=== PATIENT | female | born 1990 | race Two or more races ===

== ENCOUNTER 2018-03-10 13:11 | Emergency (ER) | payer MEDICAID ==
[2018-03-10] MEDS ORDERED: ONDANSETRON 4 MG TAB.RAPDIS PO ONE (15:05)
--- NOTE | 2018-03-10 15:06 | ER Document Report ---
ED Medical Screen (RME) - General Chief Complaint: Abdominal Pain Stated Complaint: ABDOMINAL PAIN Time Seen by Provider: 03/10/18 15:04 Notes: 27 years old female who is presents today with lower abdominal pain fever rash chills and nausea vomited a few times. TRAVEL OUTSIDE OF THE [place] IN LAST 30 DAYS: No - Related Data Allergies/Adverse Reactions: No Known Allergies Allergy (Unverified 03/10/18 13:17) Physical Exam - Vital signs Vitals: Temp Pulse Resp BP Pulse Ox 98.7 F 78 18 127/78 H 100 03/10/18 13:22 03/10/18 13:22 03/10/18 13:22 03/10/18 13:22 03/10/18 13:22 Course - Vital Signs Vital signs: Temp Pulse Resp BP Pulse Ox 98.7 F 78 18 127/78 H 100 03/10/18 13:22 03/10/18 13:22 03/10/18 13:22 03/10/18 13:22 03/10/18 13:22
[2018-03-10 15:38] LABS: ABSOLUTE BASOPHILS # (AUTO) 0.1 10^3/uL (0.0-0.2); ABSOLUTE EOSINOPHILS # (AUTO) 0.2 10^3/uL (0.0-0.6); ABSOLUTE LYMPHOCYTES (AUTO) 3.3 10^3/uL (0.5-4.7); ABSOLUTE MONOCYTES (AUTO) 0.5 10^3/uL (0.1-1.4); ABSOLUTE NEUT (AUTO) 8.2 10^3/uL (1.7-8.2); BASOPHILS % (AUTO) 0.6 % (0-2); EOSINOPHILS % (AUTO) 1.7 % (0-6); HEMATOCRIT 37.2 % (36.0-47.0); HEMOGLOBIN 12.5 g/dL (12.0-15.5); LYMPHOCYTES % (AUTO) 26.6 % (13-45); MEAN CORPUSCULAR HEMOGLOBIN 28.4 pg (27.0-33.4); MEAN CORPUSCULAR HGB CONC 33.5 g/dL (32.0-36.0); MEAN CORPUSCULAR VOLUME 85 fl (80-97); MONOCYTES % (AUTO) 4.4 % (3-13); PLATELET COUNT 292 10^3/uL (150-450); RED BLOOD COUNT 4.38 10^6/uL (3.72-5.28); RED CELL DISTRIBUTION WIDTH 13.5 % (11.5-14.0); SEGMENTED NEUTROPHILS % (AUTO) 66.7 % (42-78); TOTAL CELLS COUNTED % (AUTO) 100 %; WHITE BLOOD COUNT 12.3 10^3/uL (4.0-10.5)
[2018-03-10 15:41] LABS: APPEARANCE,URINE CLEAR; BILIRUBIN,URINE NEGATIVE (NEGATIVE); COLOR,URINE STRAW; GLUCOSE, URINE NEGATIVE (NEGATIVE); KETONES,URINE NEGATIVE (NEGATIVE); LEUKOCYTE ESTERASE,URINE NEGATIVE (NEGATIVE); NITRITE,URINE NEGATIVE (NEGATIVE); PROTEIN,URINE NEGATIVE (NEGATIVE); UROBILINOGEN,URINE NEGATIVE mg/dL (<2.0)
[2018-03-10 15:58] LABS: ALANINE AMINOTRANSFERASE 17 U/L (9-52); ALBUMIN 4.2 g/dL (3.5-5.0); ALKALINE PHOSPHATASE 56 U/L (38-126); ANION GAP 13 (5-19); ASPARTATE AMINO TRANSFERASE 17 U/L (14-36); BILIRUBIN,DIRECT 0.1 mg/dL (0.0-0.4); BILIRUBIN,TOTAL 0.1 mg/dL (0.2-1.3); BLOOD UREA NITROGEN 6 mg/dL (7-20); CALCIUM 9.5 mg/dL (8.4-10.2); CARBON DIOXIDE 24 mmol/L (22-30); CHLORIDE 104 mmol/L (98-107); GLUCOSE 91 mg/dL (75-110); SODIUM 141.4 mmol/L (137-145); TOTAL PROTEIN 6.9 g/dL (6.3-8.2)
[2018-03-10] MEDS ORDERED: ACETAMINOPHEN 325 MG TABLET PO ONE (16:43)
--- NOTE | 2018-03-10 17:50 | RADIOLOGY REPORT (SQ) ---
EXAM DESCRIPTION: U/S OB TRANSVAG W/DOPPLER COMPLETED DATE/TIME: 03/10/2018 5:39 pm REASON FOR STUDY: pego pain COMPARISON: None. TECHNIQUE: Endovaginal static and realtime grayscale images acquired of the pelvis. Additional selec jennifer spectral and color Doppler images recorded. All images stored on PACs. [facility],886 CLINICAL DATES: 01/19/2018 LIMITATIONS: Adnexa not seen due to pelvic bowel gas FINDINGS: FETUS: Single Living intrauterine . ULTRASOUND EGA: 6 weeks 4 days ULTRASOUND GIANFRANCO: 10/30/2018 EFW: Not applicable less than 20 weeks. CRL: 0.7 cm FHR: 141 beats per minute. SURVEY: Too early to assess. AMNIOTIC FLUID: Adequate amount. PLACENTA: Not yet developed due to early gestation. SUBCHORIONIC BLEED: No. SIZE OF BLEED: Not applicable. UTERUS: No masses. No anomalies. Uterus is 9.6 x 5 x 5 cm size CERVICAL LENGTH: 2.7 cm Closed. RIGHT ADNEXA: Not visualized due to adnexal bowel gas LEFT ADNEXA: Not visualized due to adnexal bowel gas FREE FLUID: None. OTHER: No other significant finding. IMPRESSION: LIVING INTRAUTERINE . EGA 6 weeks 4 days Trimester of : First - 0 to 13 weeks. TECHNICAL DOCUMENTATION: JOB ID: [id number] [employer]- All Rights Reserved rev-08/13 Reading location - IP/workstation name: [email or web address]
--- NOTE | 2018-03-10 18:21 | ER Document Report ---
ED General - General Chief Complaint: Abdominal Pain Stated Complaint: ABDOMINAL PAIN Time Seen by Provider: 03/10/18 15:04 Notes: Patient is a 27-year-old female presents to the emergency department for lower back pain and left pelvic pain. Patient states she was also nauseated and has a generalized headache. Patient states her last menstrual period was January 19 and she took a home test that was positive. Patient denies any vaginal discharge, to include malodor or bleeding. Patient denies any vaginal itching. Patient denies dysuria. Past medical history: Sickle cell trait Medications: none allergies: none surgery: TRAVEL OUTSIDE OF THE [place] IN LAST 30 DAYS: No - Related Data Allergies/Adverse Reactions: No Known Allergies Allergy (Unverified 03/10/18 13:17) Past Medical History - General Information source: Patient - Social History Smoking Status: Unknown if Ever Smoked Family History: Reviewed & Not Pertinent Patient has suicidal ideation: No Patient has homicidal ideation: No Renal/ Medical History: Denies: Hx Peritoneal Dialysis Review of Systems - Review of Systems Constitutional: denies: Chills, Fever EENT: No symptoms reported Cardiovascular: No symptoms reported Respiratory: No symptoms reported Gastrointestinal: See HPI Genitourinary: See HPI Female Genitourinary: See HPI Musculoskeletal: See HPI Skin: No symptoms reported Hematologic/Lymphatic: No symptoms reported Neurological/Psychological: No symptoms reported Physical Exam - Vital signs Vitals: Temp Pulse Resp BP Pulse Ox 98.7 F 78 18 127/78 H 100 03/10/18 13:22 03/10/18 13:22 03/10/18 13:22 03/10/18 13:22 03/10/18 13:22 - Notes Notes: GENERAL: Alert, interacts well. No acute distress. HEAD: Normocephalic, atraumatic. EYES: Pupils equal, round, and reactive to light. Extraocular movements intact. ENT: Oral mucosa moist, tongue midline. NECK: Full range of motion. Supple. Trachea midline. LUNGS: Clear to auscultation bilaterally, no wheezes, rales, or rhonchi. No respiratory distress. HEART: Regular rate and rhythm. No murmur ABDOMEN: Soft, non-tender. Non-distended. Bowel sounds present in all 4 quadrants. No McBurney's point tenderness, no Richardson sign. Patient has minor pain left pelvic region. EXTREMITIES: Moves all 4 extremities spontaneously. No edema, normal radial and dorsalis pedis pulses bilaterally. No cyanosis. BACK: no cervical, thoracic, lumbar midline tenderness. No saddle anesthesia, normal distal neurovascular exam. No CVA tenderness bilaterally generalized lower lumbar pain paraspinal. NEUROLOGICAL: Alert and oriented x3. Normal speech. cranial nerves II through XII grossly intact PSYCH: Normal affect, normal mood. SKIN: Warm, dry, normal turgor. No rashes or lesions noted. Course - Re-evaluation Re-evalutation: 03/10/18 18:41 Patient's labs revealed leukocytosis of 12.3. No signs of anemia, no signs of urinary tract infection. Patient also has no signs of electrolyte abnormalities. Patient does have a positive hCG with ultrasound result that shows a 6-week 4-day living intrauterine . Heart rate 141, closed os. Reevaluated the patient after Zofran and Tylenol. Patient states she is no longer nauseated and she no longer has any abdominal pain or headache. Discussed with her ultrasound and lab results. Discussed need to follow-up with NUCLEAR CARDIOLOGY TECHNOLOGIST. Close return precautions discussed. Vitals reviewed, patient non-tachycardic, not hypotensive. Stable for discharge. - Vital Signs Vital signs: Temp Pulse Resp BP Pulse Ox 98.7 F 78 18 127/78 H 100 03/10/18 13:22 03/10/18 13:22 03/10/18 13:22 03/10/18 13:22 03/10/18 13:22 - Laboratory Result Diagrams: 03/10/18 15:19 03/10/18 15:19 Laboratory results interpreted by me: 03/10/18 03/10/18 03/10/18 15:19 15:19 15:19 WBC 12.3 H BUN 6 L Total Bilirubin 0.1 L Beta HCG, Quant 63103.00 H Urine HCG, Qual POSITIVE H Discharge - Discharge Clinical Impression: Nausea, Pelvic pain Qualifiers: Weeks of gestation: less than 8 weeks Qualified Code(s): Z3A.01 - Less than 8 weeks gestation of Condition: Stable Disposition: HOME, SELF-CARE Instructions: Nausea or Vomiting, Nonspecific ([facility]), Pelvic Pain in ( [facility]) Additional Instructions: As we discussed you have been seen and treated in the emergency department for lower abdominal pain, back pain, nausea, headache. Your lab results reveal that you are 6 weeks and 4 days . Your ultrasound shows a single living intrauterine . This means that the baby is inside of your uterus where it should be. Should you continue with any pains you can take Tylenol [id number]. Please return to the emergency room should you have any other concerning sign and symptoms. I have given you a phone number for NUCLEAR CARDIOLOGY TECHNOLOGIST follow-up. Please follow-up with them as soon as possible. Referrals: TITA AYERS MD [ACTIVE STAFF] - Follow up as needed
[2018-03-10 19:32] VITALS: BP 125/80
== END 2018-03-10 19:31 | disposition home or self-care (01) ==
LOC: ER 13:11
DX: O26.891 Other specified pregnancy related conditions, first trimester (principal); R10.2 Pelvic and perineal pain; R11.0 Nausea; R51 Headache; O99.89 Other specified diseases and conditions complicating pregnancy, childbirth and the puerperium; M54.5 Low back pain; O99.111 Other diseases of the blood and blood-forming organs and certain disorders involving the immune mechanism complicating pregnancy, first trimester; D72.829 Elevated white blood cell count, unspecified; D57.3 Sickle-cell trait; Z3A.01 Less than 8 weeks gestation of pregnancy
CPT/HCPCS: 99284; 36415; 84702; 85025; 81025; 80053; 81001; 76817; 93976; J3490; S0119

== ENCOUNTER 2018-07-29 16:47 | Outpatient (CLI) | payer MEDICAID ==
[2018-07-29 17:53] LABS: APPEARANCE,URINE CLEAR; BILIRUBIN,URINE NEGATIVE (NEGATIVE); COLOR,URINE STRAW; GLUCOSE, URINE NEGATIVE (NEGATIVE); KETONES,URINE NEGATIVE (NEGATIVE); LEUKOCYTE ESTERASE,URINE NEGATIVE (NEGATIVE); NITRITE,URINE NEGATIVE (NEGATIVE); PROTEIN,URINE NEGATIVE (NEGATIVE); URINE SPECIFIC GRAVITY 1.009; UROBILINOGEN,URINE NEGATIVE mg/dL (<2.0)
[2018-07-29 18:09] LABS: URINE AMPHETAMINES SCREEN NEGATIVE; URINE BARBITURATES SCREEN NEGATIVE; URINE BENZODIAZEPINES SCREEN NEGATIVE; URINE COCAINE SCREEN NEGATIVE; URINE MARIJUANA (THC) SCREEN NEGATIVE; URINE METHADONE SCREEN NEGATIVE; URINE PHENCYCLIDINE SCREEN NEGATIVE
--- NOTE | 2018-07-29 19:23 | RADIOLOGY REPORT (SQ) ---
EXAM DESCRIPTION: U/S OB LIMITED COMPLETED DATE/TIME: 07/29/2018 6:58 pm REASON FOR STUDY: 28wks, left ant abd ttp, placenta, fetus COMPARISON: None. TECHNIQUE: Limited transabdominal grayscale ultrasound for evaluation of specific requested obstetri angel parameters. LIMITATIONS: None. FINDINGS: Live intrauterine measuring 27 weeks 0 days. GIANFRANCO 10/28/2018. EFW: 974 g, 58th p ercentile. CERVICAL LENGTH: 2.8 cm Closed. ARLEY: 16 cm. FHR: 143 beats per minute. PRESENTATION: Cephalic. PLACENTA: Anterior ANATOMY: Normal as visualized OTHER: No other significant findings. IMPRESSION: LIMITED OBSTETRICAL ULTRASOUND WITH MEASURED PARAMETERS DELINEATED ABOVE. Trimester of : Second trimester - 13 weeks 1 day to 27 weeks 6 days. TECHNICAL DOCUMENTATION: JOB ID: [id number] [employer]- All Rights Reserved Reading location - IP/workstation name: [email or web address]
== END 2018-07-29 19:58 | disposition home or self-care (01) ==
LOC: LC 16:47
PROVIDERS: ATTEND Student in an Organized Health Care Education/Training Program
DX: O47.02 False labor before 37 completed weeks of gestation, second trimester (principal); Z3A.28 28 weeks gestation of pregnancy
CPT/HCPCS: 76815; 80307; 81001; 82962

== ENCOUNTER 2018-09-20 15:06 | Outpatient (CLI) | payer MEDICAID ==
--- NOTE | 2018-09-20 16:02 | Non Stress Test Report ---
Non Stress Test Datetime Report Generated by CPN: 09/20/2018 16:02 DEMOGRAPHIC EGA NST: 35.3 INDICATION Indication for Study: Diabetes Mellitus Indication for Study (NST) Other: GDM repeat from office VITAL SIGNS Temperature - NST: 98.2 Pulse - NST: 87 MONITORING Monitor Explained: Monitor Explained; Test Explained; Patient Verbalized Understanding Time on Monitor: 09/20/2018 15:24 Time off Monitor: 09/20/2018 15:55 NST Duration: 31 NST INTERVENTIONS NST Interventions: PO Hydration Physician Notified NST: C. Orantes, CNM BABY A: [id number] BABY A Movement : Present Contraction Frequency : irregular FHR Baseline : 125 Accelerations : 15X15 Decelerations : None Variability : Moderate 6-25bpm NST Review: Meets Criteria for Reactive NST NST Review and Verified By : C. Delta, RN NST Results: Reactive NST COMMENTS NST Comments: cnm on unit reviewing strip NST REPORT Report Trigger: Send Report
== END 2018-09-20 16:01 | disposition home or self-care (01) ==
LOC: LC 15:06
PROVIDERS: ATTEND Obstetrics & Gynecology
PROC: 4A1HXCZ Monitoring of Products of Conception, Cardiac Rate, External Approach (ICD-10-PCS; principal; 2018-09-20)
DX: O24.419 Gestational diabetes mellitus in pregnancy, unspecified control (principal); O99.333 Smoking (tobacco) complicating pregnancy, third trimester; F17.210 Nicotine dependence, cigarettes, uncomplicated; Z3A.35 35 weeks gestation of pregnancy
CPT/HCPCS: 59025

== ENCOUNTER 2018-09-25 17:47 | Emergency (ER) | payer MEDICAID ==
[2018-09-25 17:55] VITALS: BP 127/80
--- NOTE | 2018-09-25 18:17 | ER Document Report ---
ED Oral Problem - General Chief Complaint: Mouth Problem Stated Complaint: MOUTH PAIN Time Seen by Provider: 09/25/18 18:02 Primary Care Provider: VAMSHI MCFARLAND MD [Primary Care Provider] - Follow up as needed MIS CASTRO MD [ACTIVE STAFF] - Follow up as needed LEVON KIRBY DDS [ACTIVE STAFF] - Follow up as needed CANDIDO MA DO [ASSOCIATE] - Follow up as needed AMBER HARRIS MD [ACTIVE STAFF] - Follow up as needed Mode of Arrival: Ambulatory Information source: Patient Notes: 28-year-old female presented to ED for growth to her gumline on the right side. She states she has had the growth for about 2 months but it got much larger and changed in color today. She was very concerned so she came to the emergency room. Patient is alert and oriented respirations regular and unlabored speaking in full sentences walks with a even steady gait. States she states it is painful to palpation or when she eats or drinks. She is 4 para 1 and 36 weeks right now. She states she is been trying to call the dentist for the 2 months and has an appointment on the but was concerned now. TRAVEL OUTSIDE OF THE [place] IN LAST 30 DAYS: No - HPI Patient complains to provider of: Other - Posterior right lower jaw Onset: Other - Months Onset: Gradual Quality of pain: Sharp Severity: Mild Pain Level: 1 Associated symptoms: Other - Both to gums right lower Worsened by: Other Relieved by: Nothing - Palpation Similar symptoms previously: Yes Recently seen / treated by doctor/dentist: Yes - OB but not for the mouth - Related Data Allergies/Adverse Reactions: No Known Allergies Allergy (Verified 09/20/18 15:18) Past Medical History - General Information source: Patient - Social History Smoking Status: Never Smoker Frequency of alcohol use: None Drug Abuse: None Lives with: Family Family History: Reviewed & Not Pertinent Patient has suicidal ideation: No Patient has homicidal ideation: No - Past Medical History Cardiac Medical History: Reports: None Pulmonary Medical History: Reports: None EENT Medical History: Reports: None Neurological Medical History: Reports: None Endocrine Medical History: Reports: None Renal/ Medical History: Reports: None Malignancy Medical History: Reports: None GI Medical History: Reports: None Musculoskeletal Medical History: Reports None Skin Medical History: Reports None Psychiatric Medical History: Reports: None Traumatic Medical History: Reports: None Infectious Medical History: Reports: None Surgical Hx: Negative Past Surgical History: Reports: None Review of Systems - Review of Systems Constitutional: No symptoms reported EENT: Other - Growth to the gumline on the lower right gum Cardiovascular: No symptoms reported Respiratory: No symptoms reported Gastrointestinal: No symptoms reported Genitourinary: No symptoms reported Female Genitourinary: No symptoms reported Musculoskeletal: No symptoms reported Skin: No symptoms reported Hematologic/Lymphatic: No symptoms reported Neurological/Psychological: No symptoms reported Physical Exam - Vital signs Vitals: Temp Pulse Resp BP Pulse Ox 99.3 F 106 H 16 127/80 H 96 09/25/18 17:52 09/25/18 17:52 09/25/18 17:52 09/25/18 17:52 09/25/18 17:52 Interpretation: Normal - General General appearance: Appears well, Alert - HEENT Head: Normocephalic, Atraumatic Eyes: Normal Pupils: PERRL Ears: Normal External canal: Normal Tympanic membrane: Normal Nasal: Normal Mouth/Lips: Lesions - Right lower gum one on the inner one on the outer side of the gums Pharynx: Normal Neck: Normal - Respiratory Respiratory status: No respiratory distress Chest status: Nontender Breath sounds: Normal Chest palpation: Normal - Cardiovascular Rhythm: Regular Heart sounds: Normal auscultation Murmur: No - Abdominal Inspection: Gravid female Distension: No distension Bowel sounds: Normal Tenderness: Nontender Organomegaly: No organomegaly - Back Back: Normal, Nontender - Extremities General upper extremity: Normal inspection, Nontender, Normal color, Normal ROM, Normal temperature General lower extremity: Normal inspection, Nontender, Normal color, Normal ROM, Normal temperature, Normal weight bearing. No: Everett's sign - Neurological Neuro grossly intact: Yes Cognition: Normal Orientation: AAOx4 Rosal[place] Coma Scale Eye Opening: Spontaneous [place] Coma Scale Verbal: Oriented [place] Coma Scale Motor: Obeys Commands [place] Coma Scale Total: 15 Speech: Normal Motor strength normal: LUE, RUE, LLE, RLE Sensory: Normal - Psychological Associated symptoms: Normal affect, Normal mood - Skin Skin Temperature: Warm Skin Moisture: Dry Skin Color: Normal Course - Re-evaluation Re-evalutation: 09/25/18 20:[address] Chrissy Ubrano concerning the growth to the inner and outer gum on the right lower jaw. She states the patient needed to go to the ENT or oral surgeon tomorrow or soon as possible if this has grown over the last day or so. Patient was informed of the need to follow-up and have this biopsied. Patient states she looked it up on [employer] and it said that this can happen in so she was not is concerned because it is been going on for 2 months. Patient is 36 weeks . I have informed her since that has started growing she needs to get it biopsied soon. Patient verbalized understanding and agreement with treatment plan. - Vital Signs Vital signs: Temp Pulse Resp BP Pulse Ox 99.3 F 106 H 16 127/80 H 96 09/25/18 17:52 09/25/18 17:52 09/25/18 17:52 09/25/18 17:52 09/25/18 17:52 Discharge - Discharge Clinical Impression: Growth on lower right gum Condition: Stable Disposition: HOME, SELF-CARE Additional Instructions: You were seen today for the growth on your gum to the right lower jaw. I have consulted with the doctor that is my attending and she stated you needed to get into the ENT or oral surgery tomorrow. I have given you a list of some oral surgeons and ENTs if you cannot get into 1 of those go online and find a list of ones in the area [place] more hit her [place] and get into someone tomorrow. Acetaminophen Acetaminophen may be taken for pain relief or fever control. It's much safer than aspirin, offering a wider range of "safe" dosages. It is safe during . Some brand names are Tylenol, Panadol, Datril, Anacin 3, Tempra, and Liquiprin. Acetaminophen can be repeated every four hours. The following are maximum recommended dosages: WEIGHT Dose Drops Elixir Chewable(80mg) (LBS.) drprs=droppers tsp=teaspoon 6 40 mg .4 ml (1/2) 6-11 80 mg .8 ml (full) 1/2 tsp 1 tab 12-16 120 mg 1 1/2 drprs 3/4 tsp 1 1/2 tabs 17-23 160 mg 2 drprs 1 tsp 2 tabs 24-30 240 mg 3 drprs 1 1/2 tsp 3 tabs 30-35 320 mg 2 tsp 4 tabs 36-41 360 mg 2 1/4 tsp 4 1/2 tabs 42-47 400 mg 2 1/2 tsp 5 tabs 48-53 480 mg 3 tsp 6 tabs 54-59 520 mg 3 1/4 tsp 6 1/2 tabs 60-64 560 mg 3 1/2 tsp 7 tabs 65-70 600 mg 3 3/4 tsp 7 1/2 tabs 71-76 640 mg 4 tsp 8 tabs 77-82 720 mg 4 1/2 tsp 9 tabs 83-88 800 mg 5 tsp 10 tabs >89 pounds or adults 650 mg to 900 mg Acetaminophen can be repeated every four hours. Maximum daily dose not to exceed 4000 mg. These maximum recommended dosages are slightly higher than the dosages written on the product container, but these dosages are very safe and well below the toxic dosage for acetaminophen. FOLLOW-UP CARE: If you have been referred to a physician for follow-up care, call the physicians office for an appointment as you were instructed or within the next two days. If you experience worsening or a significant change in your symptoms, notify the physician immediately or return to the Emergency Department at any time for re-evaluation. Referrals: VAMSHI MCFARLAND MD [Primary Care Provider] - Follow up as needed AMBER HARRIS MD [ACTIVE STAFF] - Follow up as needed CANDIDO MA DO [ASSOCIATE] - Follow up as needed LEVON KIRBY DDS [ACTIVE STAFF] - Follow up as needed MIS CASTRO MD [ACTIVE STAFF] - Follow up as needed
== END 2018-09-25 18:21 | disposition home or self-care (01) ==
LOC: ER 17:47
DX: O99.613 Diseases of the digestive system complicating pregnancy, third trimester (principal); K13.79 Other lesions of oral mucosa; Z3A.36 36 weeks gestation of pregnancy
CPT/HCPCS: 99282